=== PATIENT | male | born 1990 | race Caucasian/White ===

== ENCOUNTER 2024-04-01 10:52 | Emergency (ER) | payer OTHER ==
[~2024-04-01] VITALS: Ht 172.7 cm; Wt 71.8 kg
[2024-04-01 11:11] VITALS: TEMP 97.8
[2024-04-01] MEDS: LIDOcaine 1% W/epiNEPHrine 1:100,000 20ml vial SQ ONE (12:04)
[2024-04-01 12:06] VITALS: BP 134/67; PULSE 78; RESP 16; O2SAT 99
== END 2024-04-01 12:09 | disposition home or self-care (01) ==
LOC: ER 10:52
DX: S61.412A Laceration without foreign body of left hand, initial encounter (principal); Z88.0 Allergy status to penicillin; W45.8XXA Other foreign body or object entering through skin, initial encounter; Y93.89 Activity, other specified; Y92.89 Other specified places as the place of occurrence of the external cause; Y99.8 Other external cause status
CPT/HCPCS: 12002; 99282; A6222; J3490; J7030; A6258; A6446; A6449

== ENCOUNTER 2025-03-20 22:06 | Emergency (ER) | payer SELFPAY ==
[~2025-03-20] VITALS: Ht 170.2 cm; Wt 155.0 kg
[2025-03-20 22:10] VITALS: BP 123/93; PULSE 98; RESP 14; TEMP 98.6; O2SAT 98
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
== END 2025-03-20 22:55 ==
LOC: ER 22:06
DX: F10.129 Alcohol abuse with intoxication, unspecified (principal); Z88.0 Allergy status to penicillin; Y90.9 Presence of alcohol in blood, level not specified; Z72.89 Other problems related to lifestyle; V49.9XXA Car occupant (driver) (passenger) injured in unspecified traffic accident, initial encounter; Y93.89 Activity, other specified; Y92.89 Other specified places as the place of occurrence of the external cause; Y99.8 Other external cause status
CPT/HCPCS: 99283